=== PATIENT | female | born 1935 | race Caucasian/White ===

== ENCOUNTER 2022-01-14 20:45 | Inpatient (IN) ==
--- NOTE | 2022-01-14 21:11 | Emergency Department Note ---
Impression & Plan Slurring of speech, Tremor, Stroke ED Provider Note Provider: Jose Ramon Carbone MD DATE OF SERVICE: 01/14/2022 CHIEF COMPLAINT: Stroke HISTORY OF PRESENT ILLNESS: Patient is a 86-year-old female history of Parkinson's/tremor, uterine cancer, B12 deficiency presenting with and daughter today. Evidently awoke this morning and speech was slurred. At 8 AM and who was the patient left the house and went to their local hospital at [place]. States that he had CT imaging there and was diagnosed with a stroke. Rather than be transferred to [place] for neurology decided to come here as a follow with neurology at the [facility] in the system. Reportedly was last known well yesterday evening 9pm. Had aspirin earlier at OSH. No other numbness or weakness in the extremities reported. The patient denies pain. No trauma reported. No nausea or vomiting reported. Family report the speech is significantly changed from baseline. Does have some persistent tremors that she follows with neurology here for. Recent outpatient blood work for neurology as well as MRI imaging has been completed. Reportedly had CT angiograms earlier today. REVIEW OF SYSTEMS: A total of 10 review of systems was obtained and negative except as stated above in the HPI. PAST MEDICAL HISTORY: As noted above MEDICATIONS:reviewed home medications includes propranolol SOCIAL HISTORY: Lives at home with PHYSICAL EXAM: GENERAL: alert in no acute distress on stretcher, occasionally speaks - slurred Head: normocephalic and atraumatic EYES: No injection, discharge or icterus. PERRL, EOMI. NECK: Trachea midline. Supple. ENT: Mucous membranes pink and moist. LUNGS: Airway patent. No retractions. Breath sounds clear HEART: Regular rate and rhythm. No chest wall tenderness ABDOMEN: Soft and non-tender, without guarding or rebound. SKIN: Acyanotic, warm, dry, without rashes EXTREMITIES: Without swelling, tenderness or deformity NEUROLOGICAL: Moving all extremities. Does not seem to have significant drift but again not the best to following commands. Maybe some slight left arm and leg weakness. Some left-sided facial droop noted. Significant slurred speech appreciated. Tongue prep some slight left deviation. Some mild diffuse resting tremor noted. EK bpm sinus rhythm with bigeminy. No acute ST segment elevation or depression with lateral T wave inversions. QTc 462. CONTINUOUS CARDIAC MONITORING: was ordered and showed a heart rate of 60s-70s bpm in sinus rhythm with bigeminy Patient's laboratory studies and imaging reviewed. Differential includes Infection, dehydration, metabolic abnormality, hypo/hyperglycemia, electrolyte disturbance, anemia, hypoxia, cardiac sources, intracerebral event, toxicologic, neurologic, as well as other pathologies. IMPRESSION/MEDICAL DECISION MAKING: Had imaging earlier today and was reportedly told she had a stroke. CT angiogram was completed earlier and thus will not repeat. We will attempt to obtain outside records. Plain non-con CT head completed here. Received aspirin earlier by report. Outside the window for thrombolytics given time of last known well last evening/night. Basic labs obtained including EKG. Without severe abnormality. Not hypoglycemic. CT report as below. Reviewed outside hospital records. Blood work here reassuring. CT angiograms without significant reported abnormality on the outside radiology reports. Given the new change in speech and face since 9 PM last night believe likely she did suffer a CVA. Discussed with patient, , and daughter at bedside and will have the hospitalist evaluate for further care here for probable CVA. DIAGNOSIS: Slurred speech, stroke, tremor DISPOSITION: Hospitalist will evaluate Patient was agreeable with this plan. Preliminary Findings Only See Final Report For Complete Findings CT HEAD: Comparison: MRI brain 11/15/19 Involutional and chronic small vessel ischemic changes. No ICH, mass-effect, or edema. No skull fracture. Radiologist: Raghav Neri M.D. Study ready at 21:30 and initial results transmitted at 22:47 Past Med/Surg History Medical History (Updated 01/14/22 @ 22:10 by Jose Ramon Carbone M.D.) Benign essential tremor on primidone Hearing deficit no hearing aides History of blood transfusion in setting of chemo (2010) Osteoarthritis Uterine cancer hysterectomy + chemotherapy (2010) Surgical History History of adenoidectomy History of colonoscopy History of dilatation and curettage History of endoscopic sinus surgery with polypectomy History of tonsillectomy History of total hip arthroplasty bilateral History of total knee replacement right S/P laparoscopic assisted vaginal hysterectomy (LAVH) unsure if ovaries were removed Family History Father Diabetes Other No family history of adverse response to anesthesia Social History Smoking Status: Never smoker Second Hand Exposure: Yes (hx); Hx Alcohol Use: No Hx Substance Use: No Preferred Language: [place]ian Communication Ability: Effective 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 Beliefs That Will Affect Care: None marital status: Current Living Situation: Spouse Feels Safe at Home: Yes Assistive Devices: Cane, Denture - Upper, Denture - Lower and Glasses Allergies Allergies Allergy/AdvReac Type Severity Reaction Status Date / Time No Known Allergies Allergy Verified 01/14/22 21:43 Home Meds Previous Rx's Medication Instructions Recorded propranolol 60 mg capsule,24 60 mg PO DAILY #30 caps 12/05/21 hr,extended release cholecalciferol (vitamin D3) 1,250 50,000 unit PO WEEKLY 8 weeks #8 01/12/22 mcg (50,000 unit) capsule caps Results & Data (ED) Vital Signs Vital Signs - 24 hr 01/14/22 20:47 01/14/22 21:26 01/14/22 21:47 Pulse Rate 101 H Pulse Rate [Apical] 59 L 61 Respiratory Rate 20 18 17 Respiratory Effort / Characteristics Non-Labored Spontaneous Non-Labored Spontaneous Respiratory Depth Normal Normal Respiratory Pattern Regular Regular Blood Pressure 139/65 Blood Pressure [Right Arm] 159/69 H 145/67 H Blood Pressure Mean 89 Blood Pressure Mean [Right Arm] 99 93 Blood Pressure Position [Right Arm] Lying Pulse Oximetry 92 98 97 Oxygen Delivery Method Room Air Room Air Sepsis Recent Fever Within 48 Hours No Sepsis New/Unexplained Change in Mental Status Yes Sepsis Action Taken by Nursing No Action Required Laboratory Data Result diagrams: 01/14/22 21:20 01/14/22 21:20 Lab Results 01/14/22 01/14/22 01/14/22 Range/Units 21:20 21:20 21:20 WBC 6.11 (4.8-10.8) K/ul RBC 3.89 L (3.93-5.22) M/uL Hgb 12.4 (12.0-16.0) g/dl Hct 37.4 (34.1-44.9) % MCV 96.1 (80.0-100.0) fL MCH 31.9 (25.0-34.0) pg MCHC 33.2 (32.0-36.0) g/dL RDW Std Deviation 49.1 H (36.4-46.3) fL RDW Coeff of Omega 13.8 (11.5-14.5) % Plt Count 204 (130-400) K/uL MPV 10.5 (9.4-12.3) fL Immature Gran % (Auto) 0.2 % Neut % (Auto) 58.7 % Lymph % (Auto) 24.5 % [place] % (Auto) 9.2 % Eos % (Auto) 6.9 % Baso % (Auto) 0.5 % Neut # (Auto) 3.59 (1.4-6.5) K/uL Lymph # (Auto) 1.50 (1.2-3.4) K/uL [place] # (Auto) 0.56 (0.24-0.82) K/uL Eos # (Auto) 0.42 (0-0.50) K/uL Baso # (Auto) 0.03 (0-0.2) K/uL Immature Gran # (Auto) 0.01 (0.00-0.02) K/uL PT 11.0 (9.0-12.0) Seconds INR 1.0 (0.9-1.1) APTT 24.5 (21.0-31.0) Seconds PTT Ratio 0.9 Sodium 139 (136-145) mmol/L Potassium 4.3 (3.5-5.1) mmol/L Chloride 107 (98-107) mmol/L Carbon Dioxide 23 (21-32) mmol/L Anion Gap 9 (3-11) BUN 18 (6-23) mg/dl Creatinine 0.95 (0.6-1.2) mg/dl Est Cr Clr Drug Dosing 34.4 ml/min Est GFR ( Amer) 62.4 ml/min Est GFR (Non-Af Amer) 53.9 ml/min BUN/Creatinine Ratio 18.9 (10-20) Glucose 98 (70-99(Fasting)) mg/dl POC Glucose (70-99) mg/dl Calcium 9.7 (8.5-10.1) mg/dl Magnesium 1.1 L (1.7-2.4) mg/dl Total Bilirubin 0.8 (0.2-1.0) mg/dl AST 16 (13-39) U/L ALT 8 (7-52) U/L Alkaline Phosphatase 74 (34-104) U/L Troponin I High Sens 9.9 (0-14) pg/ml Total Protein 6.8 (6.0-8.3) gm/dl Albumin 3.8 (3.4-5.0) gm/dl Globulin 3.0 (2.5-4.0) gm/dl Albumin/Globulin Ratio 1.3 (0.9-2) SARS-CoV-2, RNA, NAAT (NEGATIVE) 01/14/22 01/14/22 Range/Units 21:32 21:51 WBC (4.8-10.8) K/ul RBC (3.93-5.22) M/uL Hgb (12.0-16.0) g/dl Hct (34.1-44.9) % MCV (80.0-100.0) fL MCH (25.0-34.0) pg MCHC (32.0-36.0) g/dL RDW Std Deviation (36.4-46.3) fL RDW Coeff of Omega (11.5-14.5) % Plt Count (130-400) K/uL MPV (9.4-12.3) fL Immature Gran % (Auto) % Neut % (Auto) % Lymph % (Auto) % [place] % (Auto) % Eos % (Auto) % Baso % (Auto) % Neut # (Auto) (1.4-6.5) K/uL Lymph # (Auto) (1.2-3.4) K/uL [place] # (Auto) (0.24-0.82) K/uL Eos # (Auto) (0-0.50) K/uL Baso # (Auto) (0-0.2) K/uL Immature Gran # (Auto) (0.00-0.02) K/uL PT (9.0-12.0) Seconds INR (0.9-1.1) APTT (21.0-31.0) Seconds PTT Ratio Sodium (136-145) mmol/L Potassium (3.5-5.1) mmol/L Chloride (98-107) mmol/L Carbon Dioxide (21-32) mmol/L Anion Gap (3-11) BUN (6-23) mg/dl Creatinine (0.6-1.2) mg/dl Est Cr Clr Drug Dosing ml/min Est GFR ( Amer) ml/min Est GFR (Non-Af Amer) ml/min BUN/Creatinine Ratio (10-20) Glucose (70-99(Fasting)) mg/dl POC Glucose 100 H (70-99) mg/dl Calcium (8.5-10.1) mg/dl Magnesium (1.7-2.4) mg/dl Total Bilirubin (0.2-1.0) mg/dl AST (13-39) U/L ALT (7-52) U/L Alkaline Phosphatase (34-104) U/L Troponin I High Sens (0-14) pg/ml Total Protein (6.0-8.3) gm/dl Albumin (3.4-5.0) gm/dl Globulin (2.5-4.0) gm/dl Albumin/Globulin Ratio (0.9-2) SARS-CoV-2, RNA, NAAT NEGATIVE (NEGATIVE) Discharge Plan Visit Data Chief Complaint: TIA Symptoms Stated Complaint: POSSIBLE MINI STROKE, TIA SYMPTOMS ED Provider: Jose Ramon Carbone Discharge Problem: Slurring of speech, Tremor, Stroke Patient Disposition: Being Evaluated by Hospitalist Forms Stand Alone Forms: My [facility] Prescriptions Prescriptions: No Action cholecalciferol (vitamin D3) 1,250 mcg (50,000 unit) capsule 50,000 unit PO WEEKLY 56 Days Qty: 8 0RF Rx Instructions: Take one capsule once a week for eight weeks propranolol 60 mg capsule,extended release 24 hr 60 mg PO DAILY Qty: 30 2RF Referrals Referrals: Vicente Painting DO [Primary Care Provider] - : Stroke Qualifiers: CVA mechanism: unspecified Qualified Code(s): I63.9 - Cerebral infarction, unspecified
[2022-01-14 21:29] LABS: Basophils # (auto) 0.03 K/uL (0-0.2); Basophils % (auto) 0.5 %; Eosinophils # (auto) 0.42 K/uL (0-0.50); Eosinophils % (auto) 6.9 %; Hematocrit (blood only) 37.4 % (34.1-44.9); Hemoglobin 12.4 g/dl (12.0-16.0); Immature Granulocytes # (auto) 0.01 K/uL (0.00-0.02); Immature Granulocytes % (auto) 0.2 %; Lymphocytes % (auto) 24.5 %; Mean Corpuscular Hemoglobin 31.9 pg (25.0-34.0); Mean Corpuscular Hgb Conc 33.2 g/dL (32.0-36.0); Mean Corpuscular Volume 96.1 fL (80.0-100.0); Mean Platelet Volume 10.5 fL (9.4-12.3); Monocytes # (auto) 0.56 K/uL (0.24-0.82); Monocytes % (auto) 9.2 %; Neutrophils # (auto) 3.59 K/uL (1.4-6.5); Neutrophils % (auto) 58.7 %; Platelet Count 204 K/uL (130-400); RDW Coefficient of Variation 13.8 % (11.5-14.5); RDW Standard Deviation 49.1 fL (36.4-46.3); Red Blood Count 3.89 M/uL (3.93-5.22); White Blood Count 6.11 K/ul (4.8-10.8)
[2022-01-14 21:48] LABS: Partial Thromboplastin Ratio 0.9; Partial Thromboplastin Time 24.5 Seconds (21.0-31.0)
[2022-01-14 21:54] LABS: Albumin Globulin Ratio 1.3 (0.9-2); Albumin Level 3.8 gm/dl (3.4-5.0); BUN Creatinine Ratio 18.9 (10-20); Bilirubin,Total 0.8 mg/dl (0.2-1.0); Calcium 9.7 mg/dl (8.5-10.1); Creatinine Clr Calc Pharmacy 34.4 ml/min; Est GFR (African American) 62.4 ml/min; Est GFR (Non-African American) 53.9 ml/min; Magnesium 1.1 mg/dl (1.7-2.4); Potassium 4.3 mmol/L (3.5-5.1); Total Protein 6.8 gm/dl (6.0-8.3)
[2022-01-14 21:57] LABS: Troponin I High Sensitivity 9.9 pg/ml (0-14)
--- NOTE | 2022-01-14 22:51 | History & Physical Report ---
Date of Service January 14, 2022 Assessment & Plan (1) Stroke-like symptom: Plan: 86yo female presenting from outside facility with report of slurred speech, left sided weakness and facial droop. Patient had a CT of the head as well as CTA Head and Neck performed at outside facility which were NEGATIVE for acute process. She presented outside of the window for tPA therefore was treated with ASA 81mg. No prior CVA. Exam with mild left facial droop and minimal left hand weakness -Observation to medical with telemetry -NIHSS and Neuro checks per protocol -Dysphagia screening - patient will likely need formal Speech evaluation in AM given left facial droop -Check MRI brain -Check 2D echo -Check Lipids, HgbA1C -Initiate DAPT with ASA 81mg po daily as well as Plavix 75mg po daily x 90 days -Atorvastatin 40mg po daily -Neurology consultation appreciated -PT/OT evaluation appreciated (2) Essential tremor: Plan: Chronic. Patient started on Propranolol recently -Hold Propranolol for now to allow for permissive HTN (3) Parkinsonism: Plan: Chronic -Patient follows with Neurology -Hold Propranolol F/E/N - [place]. Electrolytes WNL. AHA diet as tolerated Ppx - SCDs Code - Full Dispo - Observation to medical with telemetry History of Present Illness Chief Complaint: Possible CVA Primary Care Provider: Vicente Painting DO Margaux Phillip is a pleasant 86yo right-hand dominant female with history of Uterine CA, B12 and Vitamin D deficiencies, essential tremor and Parkinsonism presenting from [facility] with concern for CVA. Patient lives at home with her . She was last seen normal last evening 01/13/22 at 21:30. When she woke this morning her noted that she had slurred speech, mild confusion and a left facial droop. She was taken to [facility] where she had a CT of the head, CTA Head and Neck which were unremarkable for acute process. She was administered ASA 81mg x 1 and came to [facility] ER so she could be further evaluated for CVA/TIA. Patient follows with Neurology at [facility]. In the ER she is afebrile, HD stable. Daughter is at bedside and reports that her mother seems to be near baseline. She has had some dysarthria in the past - daughter thinks that her speech is near normal now. Patient denies headache, visual change, numbness/tingling/weakness. No complaint of fever, chills, chest pain, palpitations, cough, SOB, abdominal pain, nausea, vomiting or diarrhea. No additional complaints at this time. Allergies Allergy/AdvReac Type Severity Reaction Status Date / Time No Known Allergies Allergy Verified 01/14/22 21:43 Home Medications Medication Instructions Recorded Confirmed Type propranolol 60 mg capsule,24 60 mg PO DAILY #30 caps 12/05/21 01/14/22 Rx hr,extended release cholecalciferol (vitamin D3) 1,250 50,000 unit PO WEEKLY 8 weeks #8 01/12/22 01/14/22 Rx mcg (50,000 unit) capsule caps Past Med/Surg History Medical History (Updated 01/15/22 @ 00:14 by Suyapa Meza DO) Benign essential tremor on primidone Hearing deficit no hearing aides History of blood transfusion in setting of chemo (2010) Osteoarthritis Uterine cancer hysterectomy + chemotherapy (2010) Surgical History History of adenoidectomy History of colonoscopy History of dilatation and curettage History of endoscopic sinus surgery with polypectomy History of tonsillectomy History of total hip arthroplasty bilateral History of total knee replacement right S/P laparoscopic assisted vaginal hysterectomy (LAVH) unsure if ovaries were removed Family History Father Diabetes Other No family history of adverse response to anesthesia Social History Smoking Status: Never smoker Second Hand Exposure: Yes (hx); Hx Alcohol Use: No Hx Substance Use: No Preferred Language: [place] Citizen Communication Ability: Effective [employer] Required: No Beliefs That Will Affect Care: None marital status: Current Living Situation: Spouse Feels Safe at Home: Yes Assistive Devices: Cane, Denture - Upper, Denture - Lower and Glasses Review of Systems Review of Systems: All systems reviewed & are unremarkable except as noted in HPI & below Physical Exam Physical Exam: General: patient resting comfortably, NAD, non-toxic in appearance, AA&O to person and location Skin: warm, dry, intact, no rashes or lesions HEENT: NC/AT, PERRL, EOMI, anicteric sclera, conjunctiva without injection, external ear normal to inspection and nontender, nares patent, moist mucus membranes, dentition intact, no oropharyngeal lesions, neck supple, trachea midline, no LAD, no thyromegaly, no JVD Heart: +S1/S2, ectopy auscultated with Bigeminy present on monitor, no m/r/g Lungs: equal air entry bilaterally, no rales/rhonchi/wheezes Abd: +BS, soft, NT/ND, no masses/organomegaly/ascites Ext: warm, 2+ pulses in UE/LE bilaterally, no clubbing/cyanosis or edema Neuro: Resting tremor of head, patient with slurred speech, mild left facial droop, oriented to person and location, CN II - XII intact, sensation to light touch intact, MS mildly 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 No drift appreciated. Gait not assessed. Results & Data Results & Data ([facility]) Vital Signs (Past 12 Hours) Vital Signs Pulse Pulse Resp BP BP Pulse Ox O2 Del Method 01/14/22 21:47 61 17 145/67 H 97 Room Air 01/14/22 21:26 59 L 18 159/69 H 98 Room Air 01/14/22 20:47 101 H 20 139/65 92 Laboratory Results Laboratory Results WBC 6.11 K/ul (4.8-10.8) 01/14/22 21:20 RBC 3.89 M/uL (3.93-5.22) L 01/14/22 21:20 Hgb 12.4 g/dl (12.0-16.0) 01/14/22 21:20 Hct 37.4 % (34.1-44.9) 01/14/22 21:20 MCV 96.1 fL (80.0-100.0) 01/14/22 21:20 MCH 31.9 pg (25.0-34.0) 01/14/22 21:20 MCHC 33.2 g/dL (32.0-36.0) 01/14/22 21:20 RDW Std Deviation 49.1 fL (36.4-46.3) H 01/14/22 21:20 RDW Coeff of Omega 13.8 % (11.5-14.5) 01/14/22 21:20 Plt Count 204 K/uL (130-400) 01/14/22 21:20 MPV 10.5 fL (9.4-12.3) 01/14/22 21:20 Immature Gran % (Auto) 0.2 % 01/14/22 21:20 Neut % (Auto) 58.7 % 01/14/22 21:20 Lymph % (Auto) 24.5 % 01/14/22 21:20 [place] % (Auto) 9.2 % 01/14/22 21:20 Eos % (Auto) 6.9 % 01/14/22 21:20 Baso % (Auto) 0.5 % 01/14/22 21:20 Neut # (Auto) 3.59 K/uL (1.4-6.5) 01/14/22 21:20 Lymph # (Auto) 1.50 K/uL (1.2-3.4) 01/14/22 21:20 [place] # (Auto) 0.56 K/uL (0.24-0.82) 01/14/22 21:20 Eos # (Auto) 0.42 K/uL (0-0.50) 01/14/22 21:20 Baso # (Auto) 0.03 K/uL (0-0.2) 01/14/22 21:20 Immature Gran # (Auto) 0.01 K/uL (0.00-0.02) 01/14/22 21:20 PT 11.0 Seconds (9.0-12.0) 01/14/22 21:20 INR 1.0 (0.9-1.1) 01/14/22 21:20 APTT 24.5 Seconds (21.0-31.0) 01/14/22 21:20 PTT Ratio 0.9 01/14/22 21:20 Sodium 139 mmol/L (136-145) 01/14/22 21:20 Potassium 4.3 mmol/L (3.5-5.1) 01/14/22 21:20 Chloride 107 mmol/L (98-107) 01/14/22 21:20 Carbon Dioxide 23 mmol/L (21-32) 01/14/22 21:20 Anion Gap 9 (3-11) 01/14/22 21:20 BUN 18 mg/dl (6-23) 01/14/22 21:20 Creatinine 0.95 mg/dl (0.6-1.2) 01/14/22 21:20 Est Cr Clr Drug Dosing 34.4 ml/min 01/14/22 21:20 Est GFR ( Amer) 62.4 ml/min 01/14/22 21:20 Est GFR (Non-Af Amer) 53.9 ml/min 01/14/22 21:20 BUN/Creatinine Ratio 18.9 (10-20) 01/14/22 21:20 Glucose 98 mg/dl (70-99(Fasting)) 01/14/22 21:20 POC Glucose 100 mg/dl (70-99) H 01/14/22 21:32 Calcium 9.7 mg/dl (8.5-10.1) 01/14/22 21:20 Magnesium 1.1 mg/dl (1.7-2.4) L 01/14/22 21:20 Total Bilirubin 0.8 mg/dl (0.2-1.0) 01/14/22 21:20 AST 16 U/L (13-39) 01/14/22 21:20 ALT 8 U/L (7-52) 01/14/22 21:20 Alkaline Phosphatase 74 U/L (34-104) 01/14/22 21:20 Troponin I High Sens 9.9 pg/ml (0-14) 01/14/22 21:20 Total Protein 6.8 gm/dl (6.0-8.3) 01/14/22 21:20 Albumin 3.8 gm/dl (3.4-5.0) 01/14/22 21:20 Globulin 3.0 gm/dl (2.5-4.0) 01/14/22 21:20 Albumin/Globulin Ratio 1.3 (0.9-2) 01/14/22 21:20 SARS-CoV-2, RNA, NAAT NEGATIVE (NEGATIVE) 01/14/22 21:[address] Head - Per STAT rad - Comparison MRI brain - Involutional and chronic small vessel ischemic changes. No ICH, mass-effect or edema. No skull fracture. PG Care Time/CCT Total # of Minutes Spent Total Time Spent with Patient: Total time spent is greater than 50% in coordination of care (as documented) at patient's floor/unit and/or counseling patient: Coding Level of Care Code INT OBSERVATION CARE 50M LVL 2 Diagnoses Stroke-like symptom R29.90 Essential tremor G25.0 Parkinsonism G20
[2022-01-15] MEDS ORDERED: ONDANSETRON INJ 2 MG/ML 2 ML VIAL IV PRN (00:55)
[2022-01-15] MEDS ORDERED: ACETAMINOPHEN 325 MG TAB PO PRN (00:55)
[2022-01-15] MEDS ORDERED: GADOBUTROL 65ML VIAL IV ONE (02:12)
--- NOTE | 2022-01-15 06:33 | CT Scan Report ---
CT OF THE HEAD WITHOUT CONTRAST CLINICAL HISTORY: Stroke Like Symptoms/speech changes COMPARISON STUDY: MRI of the brain January 12, 2022. CT DOSE: 537.48 mGy.cm TECHNIQUE: Helical axial images of the head were obtained without IV contrast. Automated exposure con trol was utilized for the study. A dose lowering technique was utilized adhering to the principles o f ALARA. FINDINGS: No acute intracranial hemorrhage, midline shift or mass effect is present. White matter hyp odensity suggests small vessel disease. The ventricular system is unremarkable. The basal cisterns ar e patent. No extra-axial collections are present. There are no findings to suggest acute dural sinus thrombosis or acute territorial infarct. No significant calvarial abnormalities are present. There is mild sinus mucosal thickening. IMPRESSION: No acute intracranial findings. ACT 112: Negative or not required by law. Electronically signed by: Colby Khanna M.D. 01/15/2022 6:32 AM
--- NOTE | 2022-01-15 07:28 | Magnetic Resonance Report ---
MRI OF THE BRAIN WITHOUT AND WITH IV CONTRAST CLINICAL HISTORY: Left-sided weakness. Evaluate for cerebrovascular accident. COMPARISON STUDY: MRI of the brain January 12, 2022. Head CT January 14, 2022. TECHNIQUE: Utilizing a 1.5 Cira magnet and dedicated coil, multiplanar, multiecho imaging of the br ain was performed pre and postcontrast administration. IV administration of 5.5 mL of Gadavist contr ast was uneventful. FINDINGS: There is a new small focus of restricted diffusion within the right frontotemporal region w hich measures approximately 1.2 cm in extent. This is new since MRI of January 12, 2022 and represents an acute infarct. There is no mass effect. There is no hemorrhage. No additional foci of acute infar ction are identified. Moderate atrophy is noted. White matter T2 hyperintense foci suggest small vess el disease. Post contrast images are compromised by motion artifact. No intracranial mass or patholog ic enhancement is identified. Mild sinus thickening is present. There is trace fluid within the bilat eral mastoid air cells. Mild ventricular dilatation is due to atrophy. IMPRESSION: Small acute right frontotemporal infarct, new since MRI of January 12, 2022. No mass effe ct. No hemorrhage. ACT 112: Negative or not required by law. Electronically signed by: Colby Khanna M.D. 01/15/2022 7:25 AM
[2022-01-15 08:09] LABS: Basophils # (auto) 0.03 K/uL (0-0.2); Basophils % (auto) 0.6 %; Eosinophils # (auto) 0.35 K/uL (0-0.50); Eosinophils % (auto) 7.1 %; Hematocrit (blood only) 33.7 % (34.1-44.9); Hemoglobin 11.2 g/dl (12.0-16.0); Immature Granulocytes # (auto) 0.01 K/uL (0.00-0.02); Immature Granulocytes % (auto) 0.2 %; Lymphocytes # (auto) 1.45 K/uL (1.2-3.4); Lymphocytes % (auto) 29.3 %; Mean Corpuscular Hemoglobin 31.5 pg (25.0-34.0); Mean Corpuscular Hgb Conc 33.2 g/dL (32.0-36.0); Mean Corpuscular Volume 94.7 fL (80.0-100.0); Mean Platelet Volume 10.5 fL (9.4-12.3); Monocytes # (auto) 0.56 K/uL (0.24-0.82); Monocytes % (auto) 11.3 %; Neutrophils # (auto) 2.55 K/uL (1.4-6.5); Neutrophils % (auto) 51.5 %; Platelet Count 179 K/uL (130-400); RDW Coefficient of Variation 13.8 % (11.5-14.5); RDW Standard Deviation 47.9 fL (36.4-46.3); Red Blood Count 3.56 M/uL (3.93-5.22); White Blood Count 4.95 K/ul (4.8-10.8)
--- NOTE | 2022-01-15 08:36 | XCELERA ---
[id number]
[2022-01-15 08:40] LABS: Estimated Average Glucose 123 mg/dl; Hemoglobin A1C 5.9 % (4.5-5.6)
[2022-01-15 08:47] LABS: BUN Creatinine Ratio 18.9 (10-20); Calcium 9.2 mg/dl (8.5-10.1); Chol HDL Ratio 3.6 (0-5); Creatinine Clr Calc Pharmacy 33.2 ml/min; Est GFR (African American) 66.6 ml/min; Est GFR (Non-African American) 57.5 ml/min; Potassium 4.1 mmol/L (3.5-5.1)
[2022-01-15] MEDS: MAGNESIUM SULFATE / D5W 1 GM/100 ML BAG IV SCH ×3 (09:59→14:17)
[2022-01-15] MEDS: CLOPIDOGREL BISULFATE 75 MG TAB PO SCH (10:02)
[2022-01-15] MEDS: ATORVASTATIN 40 MG TAB PO SCH (10:02)
[2022-01-15] MEDS: ASPIRIN 81 MG ECTAB PO SCH (10:02)
--- NOTE | 2022-01-15 11:35 | Neurology Consultation ---
Date of Consultation January 15, 2022 Assessment & Plan (1) CVA (cerebral vascular accident): (2) Tremor: (3) B12 deficiency: (4) Vitamin D deficiency: (5) Confusion: (6) Parkinsonism: ASSESSMENT and PLAN/RECOMMENDATIONS: 1. Acute cerebrovascular accident Impression: The patient woke up with speech disturbance, confusion, and questionable left-sided weakness yesterday morning. Brain MRI showed acute ischemic stroke, involving right frontotemporal cortex. Based on presentation and imaging findings, the most likely etiology is atherothrombotic event however, cardioembolism due to undiagnosed paroxysmal atrial fibrillation should be considered in differential. Recommendations: Double antiplatelet treatment on aspirin 81 mg and Plavix 75 mg for 3 weeks. There is no need for Plavix loading. After third week, Plavix can be stopped. We will start patient on Lipitor 20 mg at bedtime with goal LDL level is lower than 70. Management of blood pressure. Adjusted goal blood pressure Is below 140/90. No indication for permissive Htn anymore. Telemetry monitoring. Outpatient long-term Holter monitoring is recommended to search for paroxysmal atrial fibrillation.. DVT prophylaxis while she is in hospital. Physical therapy, Occupational Therapy and speech pathology evaluations. Bedside swallowing evaluation before starting on oral feeding. The patient will likely need rehabilitation if her imbalance persist. If the patient stays stable, then she can be discharged in 24 hours. Follow-up by neurology clinic in a month. Thank you for the consultation. We will see the patient again only as needed. History of Present Illness Reason for Consultation: Speech disturbance, left sided weakness Requesting Physician: Avis Ball MD Attending Physician: Avis Ball MD History of Present Illness The patient is a 86 years old, reportedly right-handed female, who was brought to emergency department today, after she left [facility] emergency department, where she presented with acute stroke symptoms yesterday. Apparently, the patient was on her baseline the day before yesterday evening. She woke up with expressive speech difficulty, some confusion and disorientation yesterday morning. She was taken to the emergency department at [facility], head CT, CT angiography of head and neck were unremarkable for acute pathology. The patient was started on aspirin. The patient was outside of the thrombolytic treatment window. They recommended admission to [facility], but the patient preferred to come [facility] ED, which is closer to her house. She was admitted to hospital overnight, for stroke work-up. Brain MRI showed small, right temporal cortical acute ischemic stroke. Apparently, this is a new finding since the patient's recent brain MRI which was done on January 12. Since yesterday morning, the patient's mental status has been improving gradually. Now, she is alert and somewhat oriented. She still has aphasia with significant expressive difficulty. Cardiac monitoring has been showing sinus rhythm with PVCs. Lipid panel showed essentially normal result, with LDL of 86. Echocardiogram did not show intracardiac embolic source other than mild abnormalities, without PFO. The patient denies any weakness and numbness. However, she is very unsteady on her feet at this time. Blood pressure has been running slightly high. She has not had any new neurological symptoms since admission. The patient has been followed by neurology clinic, primarily for moderately significant resting and action tremor. She has been tried on primidone, propranolol, without significant improvement of symptoms. Eventually, she was started on Sinemet trial, without much benefit, and she is currently on extended release propranolol. She is not sure whether she has noticed any improvement of her tremor on current treatment. Recently, she was seen at neurology clinic again for confusional episodes. Comprehensive work-up has been in progress. Brain MRI showed moderately significant diffuse atrophy and periventricular small vasculopathic white matter changes. The patient was not on any blood thinners or lipid-lowering agents until yesterday. She denies having stroke symptoms in the past. I have reviewed the patient's chart including imaging studies and visualized them personally. I have discussed the case with the patient and answered her questions in detail. Allergies Allergy/AdvReac Type Severity Reaction Status Date / Time No Known Allergies Allergy Verified 01/14/22 21:43 Home Medications Medication Instructions Recorded Confirmed Type propranolol 60 mg capsule,24 60 mg PO DAILY #30 caps 12/05/21 01/14/22 Rx hr,extended release cholecalciferol (vitamin D3) 1,250 50,000 unit PO WEEKLY 8 weeks #8 01/12/22 01/14/22 Rx mcg (50,000 unit) capsule caps Patient History Medical History (Updated 01/15/22 @ 11:26 by Augusto Douglas MD) Benign essential tremor on primidone Hearing deficit no hearing aides History of blood transfusion in setting of chemo (2010) Osteoarthritis Uterine cancer hysterectomy + chemotherapy (2010) Surgical History History of adenoidectomy History of colonoscopy History of dilatation and curettage History of endoscopic sinus surgery with polypectomy History of tonsillectomy History of total hip arthroplasty bilateral History of total knee replacement right S/P laparoscopic assisted vaginal hysterectomy (LA[facility]) unsure if ovaries were removed Family History Father Diabetes Other No family history of adverse response to anesthesia Social History Smoking Status: Unknown if ever smoked Second Hand Exposure: Yes (hx); Preferred Language: Portuguese Communication Ability: Effective Accounts Officer Required: No Beliefs That Will Affect Care: None marital status: Current Living Situation: Spouse and Family Current Living Situation Comment: AMS - Unable to answer Feels Safe at Home: Yes Safety Concerns: Feels Safe At This Time Assistive Devices: Denture - Upper, Denture - Lower and Glasses Assistive Devices Comment: AMS - Unable to answer Review of Systems Review of Systems: All systems reviewed & are unremarkable except as noted in HPI & below Physical Exam Physical Exam: General Examination: Constitutional: Well developed elderly person in no acute distress. She is slightly anxious. HENT: Normal exam with inspection. CV: Hearth rhythm is regular with frequent PVCs. Neck: Supple, no carotid bruits. Lungs: Non-labored and comfortable breathing. Abdomen: Soft, non-tender, non-distended. Skin: No rash or ecchymosis. Extremities: No edema or cyanosis NEUROLOGICAL EXAMINATION: Mental Status: Alert and oriented to place, person and year. She knows where she lives and names of other family members. Cranial Nerves: II-XII are intact except SNHI. No nystagmus. Funduscopy: Normal looking optic discs. Motor: 5-/5 in all extremities with some coordination problem which gives im pression of left leg weakness initially. Tone: Normal without spasticity or rigidity. No Cogwheeling RAMIRO: No bradykinesia is appearent. No hypomimicry. DTRs: 1+ in UE and 1- in lower extremities. No Babinsky Sensory: Intact grossly w/o asymmetry. Some paresthesia is reported in feet. Coordination: Slight dysmetria with left HTS testing. Speech: Expressive aphasia with dysarthria. Comprehension is also affected but at lesser degree. She follows verbal commands. Gait: Not assessed. Unsteady on her feet when she stands up Musculoskeletal: Normal muscle bulk, no atrophy. Results & Data ([facility]) Vital Signs (Past 12 Hours) Vital Signs Temp Pulse Pulse Resp BP BP Pulse Ox 01/15/22 07:46 36.5 C 64 18 153/80 H 96 01/15/22 07:09 54 L 01/15/22 03:28 36.5 C 57 L 16 160/69 H 97 01/15/22 00:55 65 01/15/22 01:10 36.4 C L 91 H 16 149/63 H 91 01/14/22 23:49 60 18 125/41 L O2 Del Method 01/15/22 07:46 Room Air 01/15/22 07:09 01/15/22 03:28 Room Air 01/15/22 00:55 01/15/22 01:10 Room Air 01/14/22 23:49 Room Air Laboratory Results Laboratory Results - last 24 hr 01/14/22 01/14/22 01/14/22 21:20 21:20 21:20 WBC 6.11 RBC 3.89 L Hgb 12.4 Hct 37.4 MCV 96.1 MCH 31.9 MCHC 33.2 RDW Std Deviation 49.1 H RDW Coeff of Omega 13.8 Plt Count 204 MPV 10.5 Immature Gran % (Auto) 0.2 Neut % (Auto) 58.7 Lymph % (Auto) 24.5 [place] % (Auto) 9.2 Eos % (Auto) 6.9 Baso % (Auto) 0.5 Neut # (Auto) 3.59 Lymph # (Auto) 1.50 [place] # (Auto) 0.56 Eos # (Auto) 0.42 Baso # (Auto) 0.03 Immature Gran # (Auto) 0.01 PT 11.0 INR 1.0 APTT 24.5 PTT Ratio 0.9 Sodium 139 Potassium 4.3 Chloride 107 Carbon Dioxide 23 Anion Gap 9 BUN 18 Creatinine 0.95 Est Cr Clr Drug Dosing 34.4 Est GFR ( Amer) 62.4 Est GFR (Non-Af Amer) 53.9 BUN/Creatinine Ratio 18.9 Glucose 98 POC Glucose Estimat Average Glucose Hemoglobin A1c Calcium 9.7 Magnesium 1.1 L Total Bilirubin 0.8 AST 16 ALT 8 Alkaline Phosphatase 74 Troponin I High Sens 9.9 Total Protein 6.8 Albumin 3.8 Globulin 3.0 Albumin/Globulin Ratio 1.3 Triglycerides Cholesterol LDL Cholesterol, Calc VLDL Cholesterol, Calc HDL Cholesterol Cholesterol/HDL Ratio SARS-CoV-2, RNA, NAAT 01/14/22 01/14/22 01/15/22 21:32 21:51 07:31 WBC 4.95 RBC 3.56 L Hgb 11.2 L Hct 33.7 L MCV 94.7 MCH 31.5 MCHC 33.2 RDW Std Deviation 47.9 H RDW Coeff of Omega 13.8 Plt Count 179 MPV 10.5 Immature Gran % (Auto) 0.2 Neut % (Auto) 51.5 Lymph % (Auto) 29.3 [place] % (Auto) 11.3 Eos % (Auto) 7.1 Baso % (Auto) 0.6 Neut # (Auto) 2.55 Lymph # (Auto) 1.45 [place] # (Auto) 0.56 Eos # (Auto) 0.35 Baso # (Auto) 0.03 Immature Gran # (Auto) 0.01 PT INR APTT PTT Ratio Sodium Potassium Chloride Carbon Dioxide Anion Gap BUN Creatinine Est Cr Clr Drug Dosing Est GFR ( Amer) Est GFR (Non-Af Amer) BUN/Creatinine Ratio Glucose POC Glucose 100 H Estimat Average Glucose Hemoglobin A1c Calcium Magnesium Total Bilirubin AST ALT Alkaline Phosphatase Troponin I High Sens Total Protein Albumin Globulin Albumin/Globulin Ratio Triglycerides Cholesterol LDL Cholesterol, Calc VLDL Cholesterol, Calc HDL Cholesterol Cholesterol/HDL Ratio SARS-CoV-2, RNA, NAAT NEGATIVE 01/15/22 01/15/22 01/15/22 07:31 07:31 07:31 WBC RBC Hgb Hct MCV MCH MCHC RDW Std Deviation RDW Coeff of Omega Plt Count MPV Immature Gran % (Auto) Neut % (Auto) Lymph % (Auto) [place] % (Auto) Eos % (Auto) Baso % (Auto) Neut # (Auto) Lymph # (Auto) [place] # (Auto) Eos # (Auto) Baso # (Auto) Immature Gran # (Auto) PT INR APTT PTT Ratio Sodium 140 Potassium 4.1 Chloride 108 H Carbon Dioxide 26 Anion Gap 6 BUN 17 Creatinine 0.90 Est Cr Clr Drug Dosing 33.2 Est GFR ( Amer) 66.6 Est GFR (Non-Af Amer) 57.5 BUN/Creatinine Ratio 18.9 Glucose 79 POC Glucose Estimat Average Glucose 123 Hemoglobin A1c 5.9 H Calcium 9.2 Magnesium 1.1 L Total Bilirubin AST ALT Alkaline Phosphatase Troponin I High Sens Total Protein Albumin Globulin Albumin/Globulin Ratio Triglycerides 101 Cholesterol 147 LDL Cholesterol, Calc 86 VLDL Cholesterol, Calc 20 HDL Cholesterol 41 Cholesterol/HDL Ratio 3.6 SARS-CoV-2, RNA, NAAT Diagnostic Findings Head CT 01/14/22 21:07 CT OF THE HEAD WITHOUT CONTRAST CLINICAL HISTORY: Stroke Like Symptoms/speech changes COMPARISON STUDY: MRI of the brain January 12, 2022. CT DOSE: 537.48 mGy.cm TECHNIQUE: Helical axial images of the head were obtained without IV contrast. Automated exposure control was utilized for the study. A dose lowering technique was utilized adhering to the principles of ALARA. FINDINGS: No acute intracranial hemorrhage, midline shift or mass effect is present. White matter hypodensity suggests small vessel disease. The ventricular system is unremarkable. The basal cisterns are patent. No extra-axial collections are present. There are no findings to suggest acute dural sinus thrombosis or acute territorial infarct. No significant calvarial abnormalities are present. There is mild sinus mucosal thickening. IMPRESSION: No acute intracranial findings. ACT 112: Negative or not required by law. Electronically signed by: Colby Khanna M.D. 01/15/2022 6:32 AM Brain MRI 01/15/22 00:55 MRI OF THE BRAIN WITHOUT AND WITH IV CONTRAST CLINICAL HISTORY: Left-sided weakness. Evaluate for cerebrovascular accident. COMPARISON STUDY: MRI of the brain January 12, 2022. Head CT January 14, 2022. TECHNIQUE: Utilizing a 1.5 Cira magnet and dedicated coil, multiplanar, multiecho imaging of the brain was performed pre and postcontrast administration. IV administration of 5.5 mL of Gadavist contrast was uneventful. FINDINGS: There is a new small focus of restricted diffusion within the right frontotemporal region which measures approximately 1.2 cm in extent. This is new since MRI of January 12, 2022 and represents an acute infarct. There is no mass effect. There is no hemorrhage. No additional foci of acute infarction are identified. Moderate atrophy is noted. White matter T2 hyperintense foci suggest small vessel disease. Post contrast images are compromised by motion artifact. No intracranial mass or pathologic enhancement is identified. Mild sinus thickening is present. There is trace fluid within the bilateral mastoid air cells. Mild ventricular dilatation is due to atrophy. IMPRESSION: Small acute right frontotemporal infarct, new since MRI of January 12, 2022. No mass effect. No hemorrhage. ACT 112: Negative or not required by law. Electronically signed by: Colby Khanna M.D. 01/15/2022 7:25 AM CTA head and Neck at [facility]: No hemodynamically significant stenosis but atherosclerotic changes. TTE: No significant pathology or PFO
[2022-01-15] MEDS ORDERED: MAGNESIUM SULFATE / D5W 1 GM/100 ML BAG IV ONE (16:00)
--- NOTE | 2022-01-15 16:15 | Electrocardiogram Report ---
Test Reason : Blood Pressure : / mmHG Vent. Rate : 071 BPM Atrial Rate : 071 BPM P-R Int : 150 ms QRS Dur : 070 ms QT Int : 426 ms P-R-T Axes : 040 075 031 degrees QTc Int : 462 ms Sinus rhythm with frequent Premature ventricular complexes in a pattern of bigeminy Otherwise normal ECG When compared with ECG of 18-MAY-2019 12:39, Premature ventricular complexes are now Present Premature supraventricular complexes are no longer Present Confirmed by Thomas Gonzalez ([id number]) on 01/15/2022 4:15:20 PM Referred By: REFERRED SELF Confirmed By:Thomas Gonzalez
--- NOTE | 2022-01-15 19:44 | Hospitalist Progress Note ---
Date of Service January 15, 2022 Assessment & Plan (1) CVA (cerebral vascular accident): Plan: 86yo female presenting from outside facility with report of slurred speech, left sided weakness and facial droop. Patient had a CT of the head as well as CTA Head and Neck performed at outside facility which were NEGATIVE for acute process. She presented outside of the window for tPA therefore was treated with ASA 81mg. No prior CVA. Exam with mild left facial droop and minimal left hand weakness on admission Now improved weakness and droop, still with some dysarthria and expressive aphasia MRI brain positive for acute CVA in right frontotemporal region 1.2cm ECHO neg bubble study, no thrombus, preserved EF No events on tele A1C 5.9%, lipids good Appreciate Neuro consult-most likely thrombotic event but cannot r/o embolic -continue DAPT with ASA/Plavix x 3 weeks, then dc Plavix and continue ASA monotherapy -started high intensity statin with atorvastatin 40mg daily -arranged for 30 day event monitor as outpatient to assess for occult Afib -ok to resume propranolol which she takes for tremor -PT/OT evaluation appreciated-OT recommends return with home health and PT eval pending -continue to observe overnight, continue Neuro checks (2) Hypomagnesemia: Plan: severely low at 1.3 on admission and down to 1.1 today-unclear etiology but has numerous vitamin deficiencies as well replace with 4 grams IV magnesium -follow level in AM (3) B12 deficiency: Plan: severe ly low on recent labs as outpt start B12 1000 IM daily while here and then convert to po as outpt but may need further IM doses as outpt if levels remain low on recheck f/u with PCP (4) Essential tremor: Plan: Chronic. Patient started on Propranolol recently ok to restart propranolol especially as tremor becoming fairly significant since missing her dose this AM (was held for permissive HTN) (5) Vitamin D deficiency: Plan: severely low at <7 (undetectable) on recent labs start Vit D 34229 units once weekly x 8 weeks-ordered as outpt but had not yet started (6) Parkinsonism: Plan: Chronic -Patient follows with Neurology -restart Propranolol Plan DVT proph- SCDs, added on Lovenox 30mg SQ daily Dispo-continued stay overnight on tele, awaiting PT eval, possible dc to home with home health vs rehab tomorrow Attempted to call and daughter's numbers listed and generic voicemail each number-no VM left Admission and Anticipated Discharge Date Admission Date: January 14, 2022 Subjective Pt emotional when I asked if her family was in to visit and again became tearful when I told her she had a stroke. She denies headache, CP, SOB, abd pain. SHe is eating and drinking Tele with NSR, normal rates, some trigeminy Review of Systems Review of Systems: All systems reviewed & are unremarkable except as noted in HPI & below Physical Exam Constitutional: WD/WN, vitals as above Eyes: PERRL, conjunctivae normal, anicteric sclerae ENMT: external ear and nose normal, oropharynx normal Neck: trachea midline, no thyromegaly Respiratory: normal respiratory effort, lungs clear to auscultation Cardiovascular: RRR, no murmur, no edema Chest (Breasts): Chest: normal inspection of chest Gastrointestinal (Abdomen): normal bowel sounds, soft, nontender, no hepatosplenomegaly Musculoskeletal: Extremities: extremities normal to inspection; no cyanosis and no clubbing Skin: no rashes, warm and dry Neurologic: moves all extremities and awake; no focal motor deficits Speech / Cognition: + abnormal speech (dysarthria) and + expressive aphasia (mild) Motor/Sensory: + tremor (intention tremor arms and hands, head) Psychiatric: Orientation: alert, oriented to person, oriented to place and cooperative Affect: + labile affect Lymphatic: no lymphedema Results & Data Results & Data ([facility]) Vital Signs (Past 12 Hours) Vital Signs Temp Pulse Pulse Resp BP Pulse Ox O2 Del Method 01/15/22 15:00 67 01/15/22 15:52 36.7 C 69 18 101/63 99 Room Air 01/15/22 11:51 36.5 C 67 18 117/74 97 Room Air 01/15/22 07:46 36.5 C 64 18 153/80 H 96 Room Air Laboratory Results 01/15/22 01/15/22 01/15/22 Range/Units 07:31 07:31 07:31 WBC (4.8-10.8) K/ul RBC (3.93-5.22) M/uL Hgb (12.0-16.0) g/dl Hct (34.1-44.9) % MCV (80.0-100.0) fL MCH (25.0-34.0) pg MCHC (32.0-36.0) g/dL RDW Std Deviation (36.4-46.3) fL RDW Coeff of Omega (11.5-14.5) % Plt Count (130-400) K/uL MPV (9.4-12.3) fL Immature Gran % (Auto) % Neut % (Auto) % Lymph % (Auto) % [place] % (Auto) % Eos % (Auto) % Baso % (Auto) % Neut # (Auto) (1.4-6.5) K/uL Lymph # (Auto) (1.2-3.4) K/uL [place] # (Auto) (0.24-0.82) K/uL Eos # (Auto) (0-0.50) K/uL Baso # (Auto) (0-0.2) K/uL Immature Gran # (Auto) (0.00-0.02) K/uL PT (9.0-12.0) Seconds INR (0.9-1.1) APTT (21.0-31.0) Seconds PTT Ratio Sodium 140 (136-145) mmol/L Potassium 4.1 (3.5-5.1) mmol/L Chloride 108 H (98-107) mmol/L Carbon Dioxide 26 (21-32) mmol/L Anion Gap 6 (3-11) BUN 17 (6-23) mg/dl Creatinine 0.90 (0.6-1.2) mg/dl Est Cr Clr Drug Dosing 33.2 ml/min Est GFR ( Amer) 66.6 ml/min Est GFR (Non-Af Amer) 57.5 ml/min BUN/Creatinine Ratio 18.9 (10-20) Glucose 79 (70-99(Fasting)) mg/dl POC Glucose (70-99) mg/dl Estimat Average Glucose 123 mg/dl Hemoglobin A1c 5.9 H (4.5-5.6) % Calcium 9.2 (8.5-10.1) mg/dl Magnesium 1.1 L (1.7-2.4) mg/dl Total Bilirubin (0.2-1.0) mg/dl AST (13-39) U/L ALT (7-52) U/L Alkaline Phosphatase (34-104) U/L Troponin I High Sens (0-14) pg/ml Total Protein (6.0-8.3) gm/dl Albumin (3.4-5.0) gm/dl Globulin (2.5-4.0) gm/dl Albumin/Globulin Ratio (0.9-2) Triglycerides 101 (0-150) mg/dl Cholesterol 147 (0-200) mg/dl LDL Cholesterol, Calc 86 mg/dl VLDL Cholesterol, Calc 20 (0-30) mg/dl HDL Cholesterol 41 mg/dl Cholesterol/HDL Ratio 3.6 (0-5) SARS-CoV-2, RNA, NAAT (NEGATIVE) 01/15/22 01/14/22 01/14/22 Range/Units 07:31 21:51 21:32 WBC 4.95 (4.8-10.8) K/ul RBC 3.56 L (3.93-5.22) M/uL Hgb 11.2 L (12.0-16.0) g/dl Hct 33.7 L (34.1-44.9) % MCV 94.7 (80.0-100.0) fL MCH 31.5 (25.0-34.0) pg MCHC 33.2 (32.0-36.0) g/dL RDW Std Deviation 47.9 H (36.4-46.3) fL RDW Coeff of Omega 13.8 (11.5-14.5) % Plt Count 179 (130-400) K/uL MPV 10.5 (9.4-12.3) fL Immature Gran % (Auto) 0.2 % Neut % (Auto) 51.5 % Lymph % (Auto) 29.3 % [place] % (Auto) 11.3 % Eos % (Auto) 7.1 % Baso % (Auto) 0.6 % Neut # (Auto) 2.55 (1.4-6.5) K/uL Lymph # (Auto) 1.45 (1.2-3.4) K/uL [place] # (Auto) 0.56 (0.24-0.82) K/uL Eos # (Auto) 0.35 (0-0.50) K/uL Baso # (Auto) 0.03 (0-0.2) K/uL Immature Gran # (Auto) 0.01 (0.00-0.02) K/uL PT (9.0-12.0) Seconds INR (0.9-1.1) APTT (21.0-31.0) Seconds PTT Ratio Sodium (136-145) mmol/L Potassium (3.5-5.1) mmol/L Chloride (98-107) mmol/L Carbon Dioxide (21-32) mmol/L Anion Gap (3-11) BUN (6-23) mg/dl Creatinine (0.6-1.2) mg/dl Est Cr Clr Drug Dosing ml/min Est GFR ( Amer) ml/min Est GFR (Non-Af Amer) ml/min BUN/Creatinine Ratio (10-20) Glucose (70-99(Fasting)) mg/dl POC Glucose 100 H (70-99) mg/dl Estimat Average Glucose mg/dl Hemoglobin A1c (4.5-5.6) % Calcium (8.5-10.1) mg/dl Magnesium (1.7-2.4) mg/dl Total Bilirubin (0.2-1.0) mg/dl AST (13-39) U/L ALT (7-52) U/L Alkaline Phosphatase (34-104) U/L Troponin I High Sens (0-14) pg/ml Total Protein (6.0-8.3) gm/dl Albumin (3.4-5.0) gm/dl Globulin (2.5-4.0) gm/dl Albumin/Globulin Ratio (0.9-2) Triglycerides (0-150) mg/dl Cholesterol (0-200) mg/dl LDL Cholesterol, Calc mg/dl VLDL Cholesterol, Calc (0-30) mg/dl HDL Cholesterol mg/dl Cholesterol/HDL Ratio (0-5) SARS-CoV-2, RNA, NAAT NEGATIVE (NEGATIVE) 01/14/22 01/14/22 01/14/22 Range/Units 21:20 21:20 21:20 WBC 6.11 (4.8-10.8) K/ul RBC 3.89 L (3.93-5.22) M/uL Hgb 12.4 (12.0-16.0) g/dl Hct 37.4 (34.1-44.9) % MCV 96.1 (80.0-100.0) fL MCH 31.9 (25.0-34.0) pg MCHC 33.2 (32.0-36.0) g/dL RDW Std Deviation 49.1 H (36.4-46.3) fL RDW Coeff of Omega 13.8 (11.5-14.5) % Plt Count 204 (130-400) K/uL MPV 10.5 (9.4-12.3) fL Immature Gran % (Auto) 0.2 % Neut % (Auto) 58.7 % Lymph % (Auto) 24.5 % [place] % (Auto) 9.2 % Eos % (Auto) 6.9 % Baso % (Auto) 0.5 % Neut # (Auto) 3.59 (1.4-6.5) K/uL Lymph # (Auto) 1.50 (1.2-3.4) K/uL [place] # (Auto) 0.56 (0.24-0.82) K/uL Eos # (Auto) 0.42 (0-0.50) K/uL Baso # (Auto) 0.03 (0-0.2) K/uL Immature Gran # (Auto) 0.01 (0.00-0.02) K/uL PT 11.0 (9.0-12.0) Seconds INR 1.0 (0.9-1.1) APTT 24.5 (21.0-31.0) Seconds PTT Ratio 0.9 Sodium 139 (136-145) mmol/L Potassium 4.3 (3.5-5.1) mmol/L Chloride 107 (98-107) mmol/L Carbon Dioxide 23 (21-32) mmol/L Anion Gap 9 (3-11) BUN 18 (6-23) mg/dl Creatinine 0.95 (0.6-1.2) mg/dl Est Cr Clr Drug Dosing 34.4 ml/min Est GFR ( Amer) 62.4 ml/min Est GFR (Non-Af Amer) 53.9 ml/min BUN/Creatinine Ratio 18.9 (10-20) Glucose 98 (70-99(Fasting)) mg/dl POC Glucose (70-99) mg/dl Estimat Average Glucose mg/dl Hemoglobin A1c (4.5-5.6) % Calcium 9.7 (8.5-10.1) mg/dl Magnesium 1.1 L (1.7-2.4) mg/dl Total Bilirubin 0.8 (0.2-1.0) mg/dl AST 16 (13-39) U/L ALT 8 (7-52) U/L Alkaline Phosphatase 74 (34-104) U/L Troponin I High Sens 9.9 (0-14) pg/ml Total Protein 6.8 (6.0-8.3) gm/dl Albumin 3.8 (3.4-5.0) gm/dl Globulin 3.0 (2.5-4.0) gm/dl Albumin/Globulin Ratio 1.3 (0.9-2) Triglycerides (0-150) mg/dl Cholesterol (0-200) mg/dl LDL Cholesterol, Calc mg/dl VLDL Cholesterol, Calc (0-30) mg/dl HDL Cholesterol mg/dl Cholesterol/HDL Ratio (0-5) SARS-CoV-2, RNA, NAAT (NEGATIVE) PG Care Time/CCT Total # of Minutes Spent Total Time Spent with Patient: Total time spent is greater than 50% in coordination of care (as documented) at patient's floor/unit and/or counseling patient: Coding Level of Care Code 28395 Subseq Obs Care Lvl 3 Diagnoses CVA (cerebral vascular accident) I63.9 Hypomagnesemia E83.42 B12 deficiency E53.8 Essential tremor G25.0 Vitamin D deficiency E55.9 Parkinsonism G20
[2022-01-15] MEDS: CYANOCOBALAMIN 1000 MCG/ML VIAL IM SCH (21:42)
[2022-01-15] MEDS: ENOXAPARIN INJ 30 MG/0.3 ML SYR SQ SCH (21:43)
[2022-01-15] MEDS: PROPRANOLOL HCL 60 MG LA CAP PO SCH (21:43)
[2022-01-15] MEDS ORDERED: LORazepam 1 MG in SYRINGE 0.5 ML IV ONE (23:00)
[2022-01-16 06:49] LABS: Basophils # (auto) 0.03 K/uL (0-0.2); Basophils % (auto) 0.5 %; Eosinophils # (auto) 0.37 K/uL (0-0.50); Eosinophils % (auto) 6.6 %; Hematocrit (blood only) 34.6 % (34.1-44.9); Hemoglobin 11.5 g/dl (12.0-16.0); Immature Granulocytes # (auto) 0.01 K/uL (0.00-0.02); Immature Granulocytes % (auto) 0.2 %; Lymphocytes % (auto) 26.8 %; Mean Corpuscular Hemoglobin 31.8 pg (25.0-34.0); Mean Corpuscular Hgb Conc 33.2 g/dL (32.0-36.0); Mean Corpuscular Volume 95.6 fL (80.0-100.0); Mean Platelet Volume 10.6 fL (9.4-12.3); Monocytes # (auto) 0.81 K/uL (0.24-0.82); Monocytes % (auto) 14.5 %; Neutrophils # (auto) 2.87 K/uL (1.4-6.5); Neutrophils % (auto) 51.4 %; Platelet Count 179 K/uL (130-400); RDW Coefficient of Variation 13.5 % (11.5-14.5); RDW Standard Deviation 48.1 fL (36.4-46.3); Red Blood Count 3.62 M/uL (3.93-5.22); White Blood Count 5.59 K/ul (4.8-10.8)
[2022-01-16 07:18] LABS: BUN Creatinine Ratio 17.4 (10-20); Calcium 9.1 mg/dl (8.5-10.1); Creatinine Clr Calc Pharmacy 27.4 ml/min; Est GFR (African American) 52.9 ml/min; Est GFR (Non-African American) 45.6 ml/min; Magnesium 1.9 mg/dl (1.7-2.4); Potassium 4.3 mmol/L (3.5-5.1)
[2022-01-16] MEDS: ASPIRIN 81 MG ECTAB PO SCH (08:07)
[2022-01-16] MEDS: CLOPIDOGREL BISULFATE 75 MG TAB PO SCH (08:08)
[2022-01-16] MEDS: ATORVASTATIN 40 MG TAB PO SCH (08:08)
[2022-01-16] MEDS: CYANOCOBALAMIN 1000 MCG/ML VIAL IM SCH (08:08)
[2022-01-16] MEDS: PROPRANOLOL HCL 60 MG LA CAP PO SCH (08:09)
--- NOTE | 2022-01-16 16:57 | Hospitalist Progress Note ---
Date of Service January 16, 2022 Assessment & Plan (1) CVA (cerebral vascular accident): Plan: 86yo female presenting from outside facility with report of slurred speech, left sided weakness and facial droop. Patient had a CT of the head as well as CTA Head and Neck performed at outside facility which were NEGATIVE for acute process. She presented outside of the window for tPA therefore was treated with ASA 81mg. No prior CVA. Exam with mild left facial droop and minimal left hand weakness on admission Now improved weakness and droop, still with some dysarthria and expressive aphasia MRI brain positive for acute CVA in right frontotemporal region 1.2cm ECHO neg bubble study, no thrombus, preserved EF No events on tele A1C 5.9%, lipids good Appreciate Neuro consult-most likely thrombotic event but cannot r/o embolic -continue DAPT with ASA/Plavix x 3 weeks, then dc Plavix and continue ASA monotherapy -started high intensity statin with atorvastatin 40mg daily -arranged for 30 day event monitor as outpatient to assess for occult Afib -ok to continue propranolol which she takes for tremor -PT/OT evaluation appreciated-plans for rehab placement -continue to observe overnight, continue Neuro checks (2) Hypomagnesemia: Plan: severely low at 1.3 on admission and then down to 1.1 -unclear etiology but has numerous vitamin deficiencies as well replaced and now resolved follow level in AM (3) B12 deficiency: Plan: severely low on recent labs as outpt start B12 1000 IM daily while here and then convert to po as outpt but may need further IM doses as outpt if levels remain low on recheck f/u with PCP (4) Essential tremor: Plan: Chronic. Patient started on Propranolol recently-will continue (5) Vitamin D deficiency: Plan: severely low at <7 (undetectable) on recent labs start Vit D 69320 units once weekly x 8 weeks-ordered as outpt but had not yet started (6) Parkinsonism: Plan: Chronic -Patient follows with Neurology -cont Propranolol Plan DVT proph- SCDs, Lovenox 30mg SQ daily Dispo-medically stable for discharge, awaiting rehab placement/insurance auth Admission and Anticipated Discharge Date Admission Date: January 14, 2022 Subjective Pt has no complaints, is pleasantly confused. RN reports she pockets some food at times but otherwise doing ok. Pt denies pain. When asked if she knows where she is, she seems frustrated she can't name the place and says "it's the place." Tele with NSR, normal rates Review of Systems Review of Systems: All systems reviewed & are unremarkable except as noted in HPI & below Physical Exam Constitutional: WD/WN, vitals as above Neck: trachea midline, no thyromegaly Respiratory: normal respiratory effort, lungs clear to auscultation Cardiovascular: RRR, no murmur, no edema Chest (Breasts): Chest: normal inspection of chest Gastrointestinal (Abdomen): normal bowel sounds, soft, nontender, no hepatosplenomegaly Musculoskeletal: Extremities: extremities normal to inspection; no cyanosis and no clubbing Skin: no rashes, warm and dry Neurologic: moves all extremities and awake; no focal motor deficits Speech / Cognition: + abnormal speech (dysarthria) and + expressive aphasia (mild) Motor/Sensory: + tremor (intention tremor arms and hands, head) Psychiatric: Orientation: alert, oriented to person and cooperative; + not oriented to place and + not oriented to time Affect: + labile affect (cries when discussing going to rehab) Lymphatic: no lymphedema Results & Data Results & Data ([facility]) Vital Signs (Past 12 Hours) Vital Signs Temp Pulse Pulse Resp BP Pulse Ox O2 Del Method 01/16/22 16:24 36.5 C 69 17 119/70 96 Room Air 01/16/22 15:26 58 L 01/16/22 12:31 36.8 C 86 17 115/71 96 Room Air 01/16/22 08:27 36.4 C L 50 L 18 134/81 99 Room Air 01/16/22 06:58 53 L Laboratory Results 01/16/22 01/16/22 Range/Units 06:02 06:02 WBC 5.59 (4.8-10.8) K/ul RBC 3.62 L (3.93-5.22) M/uL Hgb 11.5 L (12.0-16.0) g/dl Hct 34.6 (34.1-44.9) % MCV 95.6 (80.0-100.0) fL MCH 31.8 (25.0-34.0) pg MCHC 33.2 (32.0-36.0) g/dL RDW Std Deviation 48.1 H (36.4-46.3) fL RDW Coeff of Omega 13.5 (11.5-14.5) % Plt Count 179 (130-400) K/uL MPV 10.6 (9.4-12.3) fL Immature Gran % (Auto) 0.2 % Neut % (Auto) 51.4 % Lymph % (Auto) 26.8 % [place] % (Auto) 14.5 % Eos % (Auto) 6.6 % Baso % (Auto) 0.5 % Neut # (Auto) 2.87 (1.4-6.5) K/uL Lymph # (Auto) 1.50 (1.2-3.4) K/uL [place] # (Auto) 0.81 (0.24-0.82) K/uL Eos # (Auto) 0.37 (0-0.50) K/uL Baso # (Auto) 0.03 (0-0.2) K/uL Immature Gran # (Auto) 0.01 (0.00-0.02) K/uL Sodium 139 (136-145) mmol/L Potassium 4.3 (3.5-5.1) mmol/L Chloride 107 (98-107) mmol/L Carbon Dioxide 27 (21-32) mmol/L Anion Gap 5 (3-11) BUN 19 (6-23) mg/dl Creatinine 1.09 (0.6-1.2) mg/dl Est Cr Clr Drug Dosing 27.4 ml/min Est GFR ( Amer) 52.9 ml/min Est GFR (Non-Af Amer) 45.6 ml/min BUN/Creatinine Ratio 17.4 (10-20) Glucose 96 (70-99(Fasting)) mg/dl Calcium 9.1 (8.5-10.1) mg/dl Magnesium 1.9 (1.7-2.4) mg/dl PG Care Time/CCT Total # of Minutes Spent Total Time Spent with Patient: Total time spent is greater than 50% in coordination of care (as documented) at patient's floor/unit and/or counseling patient: Coding Level of Care Code 91209 Subseq Hosp Care Lvl 2 Diagnoses CVA (cerebral vascular accident) I63.9 Hypomagnesemia E83.42 B12 deficiency E53.8 Essential tremor G25.0 Vitamin D deficiency E55.9 Parkinsonism G20
[2022-01-16] MEDS: ENOXAPARIN INJ 30 MG/0.3 ML SYR SQ SCH (20:44)
[2022-01-17 08:17] LABS: Hematocrit (blood only) 34.5 % (34.1-44.9); Hemoglobin 11.3 g/dl (12.0-16.0); Mean Corpuscular Hemoglobin 31.6 pg (25.0-34.0); Mean Corpuscular Hgb Conc 32.8 g/dL (32.0-36.0); Mean Corpuscular Volume 96.4 fL (80.0-100.0); Mean Platelet Volume 10.5 fL (9.4-12.3); Platelet Count 152 K/uL (130-400); RDW Coefficient of Variation 13.5 % (11.5-14.5); Red Blood Count 3.58 M/uL (3.93-5.22); White Blood Count 4.53 K/ul (4.8-10.8)
[2022-01-17] MEDS: CLOPIDOGREL BISULFATE 75 MG TAB PO SCH (08:23)
[2022-01-17] MEDS: ATORVASTATIN 40 MG TAB PO SCH (08:24)
[2022-01-17] MEDS: ASPIRIN 81 MG ECTAB PO SCH (08:24)
[2022-01-17] MEDS: CYANOCOBALAMIN 1000 MCG/ML VIAL IM SCH (08:24)
[2022-01-17 08:37] LABS: Basophils # (auto) 0.03 K/uL (0-0.2); Basophils % (auto) 0.7 %; Eosinophils # (auto) 0.38 K/uL (0-0.50); Eosinophils % (auto) 8.4 %; Immature Granulocytes # (auto) 0.01 K/uL (0.00-0.02); Immature Granulocytes % (auto) 0.2 %; Lymphocytes # (auto) 1.31 K/uL (1.2-3.4); Lymphocytes % (auto) 28.9 %; Monocytes # (auto) 0.51 K/uL (0.24-0.82); Monocytes % (auto) 11.3 %; Neutrophils # (auto) 2.29 K/uL (1.4-6.5); Neutrophils % (auto) 50.5 %
[2022-01-17 08:57] LABS: BUN Creatinine Ratio 20.8 (10-20); Creatinine Clr Calc Pharmacy 28.2 ml/min; Est GFR (African American) 54.7 ml/min; Est GFR (Non-African American) 47.2 ml/min; Magnesium 1.4 mg/dl (1.7-2.4); Potassium 4.3 mmol/L (3.5-5.1)
[2022-01-17] MEDS: MAGNESIUM SULFATE / D5W 1 GM/100 ML BAG IV SCH ×2 (10:31→12:31)
--- NOTE | 2022-01-17 10:59 | Discharge Summary ---
Date of Service January 17, 2022 Admission HPI Per Admitting Provider Margaux Phillip is a pleasant 86yo right-hand dominant female with history of Uterine CA, B12 and Vitamin D deficiencies, essential tremor and Parkinsonism presenting from [facility] with concern for CVA. Patient lives at home with her . She was last seen normal last evening 01/13/22 at 21:30. When she woke this morning her noted that she had slurred speech, mild confusion and a left facial droop. She was taken to [facility] where she had a CT of the head, CTA Head and Neck which were unremarkable for acute process. She was administered ASA 81mg x 1 and came to [facility] ER so she could be further evaluated for CVA/TIA. Patient follows with Neurology at [facility]. In the ER she is afebrile, HD stable. Daughter is at bedside and reports that her mother seems to be near baseline. She has had some dysarthria in the past - daughter thinks that her speech is near normal now. Patient denies headache, visual change, numbness/tingling/weakness. No complaint of fever, chills, chest pain, palpitations, cough, SOB, abdominal pain, nausea, vomiting or diarrhea. No additional complaints at this time. Principal Diagnosis Acute CVA, hyponmagnesemia Discharge Exam Constitutional WD/WN, vitals as above Eyes + anicteric sclerae Neck trachea midline, no thyromegaly Respiratory normal respiratory effort, lungs clear to auscultation Cardiovascular RRR, no murmur, no edema Chest (Breasts) Chest: normal inspection of chest Gastrointestinal (Abdomen) normal bowel sounds, soft, nontender, no hepatosplenomegaly Musculoskeletal Extremities: extremities normal to inspection; no cyanosis and no clubbing Skin no rashes, warm and dry Neurologic moves all extremities and awake; no focal motor deficits Speech / Cognition: + abnormal speech (dysarthria) and + expressive aphasia (mild) Motor/Sensory: + tremor (intention tremor arms and hands, head) Psychiatric Orientation: alert, oriented to person and cooperative; + not oriented to place and + not oriented to time Affect: + labile affect (cries when discussing going to rehab) Lymphatic no lymphedema Discharge Data Allergies Allergy/AdvReac Type Severity Reaction Status Date / Time No Known Allergies Allergy Verified 01/14/22 21:43 Consultations 01/14/22 22:19 ED Decision to Admit Stat 01/15/22 00:55 Consult Neurology Routine Ordered Studies 01/14/22 21:07 CT head/brain wo con Urgent 01/15/22 00:55 MR brain wo/w con Routine Hospital Course (1) CVA (cerebral vascular accident): 86yo female presenting from outside facility with report of slurred speech, left sided weakness and facial droop. Patient had a CT of the head as well as CTA Head and Neck performed at outside facility which were NEGATIVE for acute process. She presented outside of the window for tPA therefore was treated with ASA 81mg. No prior CVA. Exam with mild left facial droop and minimal left hand weakness on admission Now improved weakness and droop, still with some dysarthria and expressive aphasia MRI brain positive for acute CVA in right frontotemporal region 1.2cm ECHO neg bubble study, no thrombus, preserved EF No events on tele A1C 5.9%, lipids good Appreciate Neuro consult-most likely thrombotic event but cannot r/o embolic -continue DAPT with ASA/Plavix x 3 weeks, then dc Plavix and continue ASA monotherapy -started high intensity statin with atorvastatin 40mg daily -arranged for 30 day event monitor as outpatient to assess for occult Afib -ok to continue propranolol which she takes for tremor -PT/OT evaluation appreciated-plans for rehab placement -needs ongoing Speech therapy for dysarthria -continue minced and moist diet for now (2) Hypomagnesemia: severely low at 1.3 on admission and then down to 1.1 -unclear etiology but has numerous vitamin deficiencies as well replaced and improved but remains slightly low-replaced again on day of dc but should remain on Slow Mag bid on discharge Follow Mag levels as outpt at rehab within 1 week (3) B12 deficiency: severely low on recent labs as outpt started B12 1000 IM daily while here and then convert to po as outpt but may need further IM doses as outpt if levels remain low on recheck f/u with PCP (4) Essential tremor: Chronic. Patient started on Propranolol recently-will continue (5) Vitamin D deficiency: severely low at <7 (undetectable) on recent labs start Vit D 43339 units once weekly x 8 weeks-ordered as outpt but had not yet started (6) Parkinsonism: Chronic -Patient follows with Neurology -cont Propranolol Plan DVT proph- SCDs, Lovenox 30mg SQ daily Dispo-medically stable for discharge to rehab today Total Time Total Time Spent Total Time Spent (In Minutes): 35 min Discharge Plan Discharge Items Patient Disposition: Transfer Inpatient Rehab Fac Reason For Visit: CVA Discharge Diagnosis: Acute CVA Vitamin B12 deficiency Vitamin D deficiency Condition on Discharge: Fair Activity: As commented below Bathing: No limitations Exercise/Sports: Gradually increase as tolerated Weightbearing: Full weightbearing Non-emergency contact: Primary Care Provider and Neurologist Call non-emergency contact if: you have any medication questions and your symptoms worsen Follow-up/Referrals: Neil Anne MD [Physician] - (Follow up with Neurology within 3-4 weeks) Vicente Painting DO [Primary Care Provider] - (Follow up within 1-2 weeks after discharge from rehab ) Diet: Heart Healthy Diet Comment: Minced and moist Addtl Attending Provider Instructions: You had a stroke and were placed on Aspirin and Plavix x 3 weeks, then stop the Plavix and continue on aspirin alone. You were also started on a cholesterol medication to help prevent strokes. You should have a 30 day cardiac event monitor to look for heart arrhythmias that could cause strokes. This has been arranged for you. You will need ongoing PT,OT, and Speech Therapy at rehab. Your magnesium level was very low and required replacement. Please continue on oral magnesium and have your levels checked within 1 week at rehab. Please continue on B12 and Vitamin D supplements as those levels were severely low. Pending Studies at Discharge: No Stand-Alone Forms: My [facility] Skilled Items Patient informed of condition?: Yes DNR: No Discharge Level of Care: Acute rehab Communicable Disease: No Discharge Prognosis: Improving Lines: None Urinary Catheter: No Medications and DC Order Prescriptions: New clopidogrel 75 mg Tablet 75 mg PO QAM 18 Days Qty: 18 0RF atorvastatin 40 mg Tablet 40 mg PO QAM Qty: 30 0RF aspirin 81 mg Tablet,Delayed Release (Dr/Ec) 81 mg PO QAM Qty: 30 0RF cyanocobalamin (vitamin B-12) 500 mcg Tablet 1,000 mcg PO QAM Qty: 30 0RF Slow-Mag 71.5 mg tablet,delayed release (DR/EC) 71.5 mg PO BID Qty: 60 0RF Continued cholecalciferol (vitamin D3) 1,250 mcg (50,000 unit) capsule 50,000 unit PO WEEKLY 56 Days Qty: 8 0RF Rx Instructions: Take one capsule once a week for eight weeks propranolol 60 mg capsule,extended release 24 hr 60 mg PO DAILY Qty: 30 2RF Discharge Orders: Discharge Order (Routine); Ordered 01/17/22 Ordered By: Avis Ball Admission Data Admit Date/Time: 01/14/22 22:51 Attending Provider: Avis Ball Admit Provider: Suyapa Meza Primary Care Provider: Vicente Painting Other Providers: Suyapa Meza ; Neil Anne ; [facility] Coding Level of Care Code D/C DAY MANAGEMENT >30 MINS Diagnoses CVA (cerebral vascular accident) I63.9 Hypomagnesemia E83.42 B12 deficiency E53.8 Essential tremor G25.0 Vitamin D deficiency E55.9 Parkinsonism G20
[2022-01-17 12:17] VITALS: TEMP 97.9; O2SAT 95
[2022-01-17] MEDS: PROPRANOLOL HCL 60 MG LA CAP PO SCH (13:50)
[2022-01-17 14:03] VITALS: BP 105/58; PULSE 61
[2022-01-18] MEDS ORDERED: CYANOCOBALAMIN (B-12) 500 MCG TABLET PO SCH (09:00)
[2022-01-22] MEDS ORDERED: ERGOCALCIFEROL 50,000 UNITS 1250 MCG CAP PO SCH (09:00)
== END 2022-01-17 15:50 | DRG 65 ==
LOC: ED 20:45 → 2N 20:45 → SUATTDRO 22:51 → 2N 23:49
DX: Z79.899 Other long term (current) drug therapy; E83.42 Hypomagnesemia; R29.810 Facial weakness; R29.707 NIHSS score 7; G20 Parkinson's disease; E53.8 Deficiency of other specified B group vitamins; I63.9 Cerebral infarction, unspecified; R41.0 Disorientation, unspecified; E55.9 Vitamin D deficiency, unspecified; G25.0 Essential tremor; G81.94 Hemiplegia, unspecified affecting left nondominant side; R47.81 Slurred speech